=== PATIENT | male | born 1960 | race Caucasian/White ===

== ENCOUNTER 2018-04-09 13:54 | Emergency (ER) | payer OTHER ==
[~2018-04-09] VITALS: Ht 170.2 cm; Wt 88.5 kg
[2018-04-09 14:01] VITALS: BP_SYST 143
--- NOTE | 2018-04-09 14:01 | NUR ---
Patient to ER bed 2 to gown for evaluation. Side rails up.
--- NOTE | 2018-04-09 14:26 | NUR ---
Patient arrived via POV, AAOx4, ambulatory with steady gait. Patient was at work, driving, and at his stop he went to get out of his vehicle and he felt leg weakness, tingling, almost like his feet were 'asleep.' He states he felt like he was walking leaning forward and his balance was affected. States feeling last approximately 1-1.5 hours. Patient denies difficulty hearing, worse than normal. Patient denies increased drainage or irritation with ears. Patient states history: Back injury to lumbar spine years ago, he had a disk bulge. Patient also states, 3-5 years ago he had a TIA. Patient denies N/V/D.
--- NOTE | 2018-04-09 14:27 | NUR ---
ER at bedside examining patient.
--- NOTE | 2018-04-09 14:28 | NUR ---
Lab at bedside for exam, patient tolerated well.
--- NOTE | 2018-04-09 14:33 | NUR ---
XR at bedside for exam.
[2018-04-09 14:41] LABS: BASOPHILS % (AUTO) 0.5 % (0.0-2.0); EOSINOPHILS # (AUTO) 0.2 K/uL (0.0-0.4); EOSINOPHILS % (AUTO) 2.9 % (0.0-4.0); HEMATOCRIT 42.1 % (36-54); LYMPHOCYTES # (AUTO) 0.8 K/uL (1.0-5.5); MEAN CORPUSCULAR HEMOGLOBIN 30 pg (27-31); MEAN CORPUSCULAR HGB CONC 33 % (32-36); MEAN CORPUSCULAR VOLUME 89 fL (79.0-98.0); MONOCYTES # (AUTO) 0.4 K/uL (0.0-1.0); MONOCYTES % (AUTO) 7.9 % (1.7-9.3); NEUTROPHILS # (AUTO) 4.2 K/uL (1.8-7.7); NEUTROPHILS % (AUTO) 73.7 % (40.0-70.0); PLATELET COUNT (AUTO) 354 K/uL (130-430); RED CELL DISTRIBUTION WIDTH 12.4 % (9.0-15.0); WHITE BLOOD COUNT (AUTO) 5.6 K/uL (4.8-10.8)
[2018-04-09 14:48] LABS: ANION GAP 8 (5-15); CHLORIDE 103 mmol/L (98-107); CREATININE 0.75 mg/dL (0.55-1.30); GLUCOSE 120 mg/dL (70-99); POTASSIUM 3.7 mmol/L (3.5-5.1); SODIUM SERUM 137 mmol/L (136-145); UREA NITROGEN, BLOOD 12 mg/dL (8-21)
[2018-04-09 14:52] LABS: GFR AFRICAN AMERICAN 138 mL/min (>90)
[2018-04-09 14:54] LABS: ALANINE AMINOTRANSFERASE 29 U/L (12-78); ALBUMIN 3.8 g/dL (3.4-4.8); ASPARTATE AMINOTRANSFERASE 18 U/L (10-37); TOTAL BILIRUBIN 0.5 mg/dL (0.0-1.0)
[2018-04-09 14:55] LABS: ALCOHOL, BLOOD < 3 mg/dL (<10)
--- NOTE | 2018-04-09 15:22 | NUR ---
Off unit for CT.
--- NOTE | 2018-04-09 15:42 | NUR ---
Patient aware we are waiting for results, patient resting comfortably, given blanket for comfort. Will continue to monitor.
--- NOTE | 2018-04-09 16:03 | NUR ---
Patient given written and verbal discharge instructions and verbalizes understanding. ER MD discussed with patient the results and treatment provided. Patient in stable condition. ID arm band removed. Patient educated on pain management and to follow up with PMD. Pain Scale 0/10. Opportunity for questions provided and answered. Medication side effect fact sheet provided.
[2018-04-09 16:04] VITALS: BP_SYST 128
== END 2018-04-09 16:04 | disposition home or self-care (01) ==
LOC: SED 13:54
DX: R42 Dizziness and giddiness (principal); I10 Essential (primary) hypertension; Z86.73 Personal history of transient ischemic attack (TIA), and cerebral infarction without residual deficits
CPT/HCPCS: 36415; 70450; 71045; 80053; 84484; 85025; 93005; 99285; G0482

== ENCOUNTER 2023-09-27 13:44 | Inpatient (IN) | payer OTHER ==
[~2023-09-27] VITALS: Ht 167.6 cm; Wt 87.1 kg
[2023-09-27 13:45] VITALS: BP_SYST 117; PULSE 111; RESP 18; TEMP 99; O2SAT 98
[2023-09-27 14:40] LABS: BASOPHILS % (AUTO) 0.5 % (0.0-2.0); EOSINOPHILS % (AUTO) 0.2 % (0.0-4.0); HEMATOCRIT 22.1 % (36-54); HEMOGLOBIN 7.7 g/dL (14.0-18.0); LYMPHOCYTES # (AUTO) 1.3 K/uL (1.0-5.5); LYMPHOCYTES % (AUTO) 16.4 % (20.5-51.5); MEAN CORPUSCULAR HEMOGLOBIN 31 pg (27-31); MEAN CORPUSCULAR HGB CONC 35 % (32-36); MEAN CORPUSCULAR VOLUME 89 fL (79.0-98.0); MONOCYTES # (AUTO) 0.6 K/uL (0.0-1.0); MONOCYTES % (AUTO) 7.2 % (1.7-9.3); NEUTROPHILS # (AUTO) 6.2 K/uL (1.8-7.7); NEUTROPHILS % (AUTO) 75.7 % (40.0-70.0); PLATELET COUNT (AUTO) 228 K/uL (130-430); RED BLOOD CELL COUNT(AUTO) 2.48 MIL/uL (4.2-6.2); WHITE BLOOD COUNT (AUTO) 8.2 K/uL (4.8-10.8)
[2023-09-27 14:55] LABS: PROTHROMBIN TIME 10.4 SECS (9.5-12.5)
[2023-09-27 14:56] LABS: ALBUMIN 3.2 g/dL (3.4-4.8); BILIRUBIN,DIRECT 0.1 mg/dL (0.0-0.3); TOTAL BILIRUBIN 0.3 mg/dL (0.0-1.0); TOTAL PROTEIN, SERUM 6.3 g/dL (6.4-8.3)
[2023-09-27 15:05] LABS: ANION GAP 8 (5-15); CALCIUM 7.7 mg/dL (8.4-11.0); CARBON DIOXIDE 26 mmol/L (23-29); CHLORIDE 106 mmol/L (98-107); CREATININE 0.76 mg/dL (0.55-1.30); GFR AFRICAN AMERICAN 133 mL/min (>90); GFR NON AFRICAN-AMERICAN 110 mL/min (>90); GLUCOSE 205 mg/dL (74-106); POTASSIUM 3.9 mmol/L (3.5-5.1); SODIUM SERUM 140 mmol/L (136-145); UREA NITROGEN, BLOOD 30 mg/dL (8-21)
[2023-09-27] MEDS: PANTOPRAZOLE SODIUM 80 MG in NS 100 ML IVP ONE (16:17)
[2023-09-27] MEDS ORDERED: PANTOPRAZOLE SODIUM 40 MG/VIAL (PROTONIX) ONE ×2 (16:17)
[2023-09-27] MEDS ORDERED: LORazepam 2 MG/ML VIAL IVP PRN (17:15)
[2023-09-27] MEDS ORDERED: MAGNESIUM SULFATE 50 ML IV PRN (17:15)
[2023-09-27] MEDS ORDERED: MUPIROCIN 2% TOPICAL OINTMENT 22 GM NS PRN (17:15)
[2023-09-27] MEDS ORDERED: POTASSIUM CHLORIDE 20 MEQ TABLET.ER PO PRN (17:15)
[2023-09-27] MEDS ORDERED: ONDANSETRON HCL 4 MG/2 ML VIAL IVP PRN (17:15)
[2023-09-27] MEDS ORDERED: MORPHINE 2 MG/ML INJ. SYRINGE IVP PRN ×2 (17:15)
[2023-09-27] MEDS ORDERED: ZOLPIDEM TARTRATE 5 MG TABLET PO PRN (17:15)
[2023-09-27] MEDS: D5NS 1,000 ML IV SCH (17:37)
[2023-09-27] MEDS: PANTOPRAZOLE SODIUM 40 MG/VIAL (PROTONIX) IVP ONE (17:38)
[2023-09-27] MEDS ORDERED: ACETAMINOPHEN 500 MG TABLET PO PRN ×3 (17:45)
[2023-09-27] MEDS ORDERED: LIP20 PO (18:09)
[2023-09-27] MEDS ORDERED: METO25TA6 PO (18:09)
[2023-09-27] MEDS ORDERED: ASPI-1393 PO (18:09)
[2023-09-27] MEDS ORDERED: LISI-209 PO (18:09)
[2023-09-27 18:15] LABS: THYROID STIMULATING HORMONE 1.73 uIu/mL (0.36-3.74)
[2023-09-27 21:13] VITALS: BP_SYST 126; PULSE 108; RESP 16; TEMP 97.9
[2023-09-27] MEDS: PANTOPRAZOLE SODIUM 40 MG/VIAL (PROTONIX) IVP SCH (22:29)
[2023-09-28] VITALS (8 sets, daily range): BP systolic 100–130; PULSE 12–108; RESP 16–18; TEMP 97.3–99; O2SAT 94–100
[2023-09-28 08:01] LABS: BASOPHILS % (AUTO) 0.8 % (0.0-2.0); EOSINOPHILS # (AUTO) 0.1 K/uL (0.0-0.4); EOSINOPHILS % (AUTO) 2.6 % (0.0-4.0); HEMATOCRIT 22.4 % (36-54); HEMOGLOBIN 7.7 g/dL (14.0-18.0); LYMPHOCYTES # (AUTO) 1.2 K/uL (1.0-5.5); LYMPHOCYTES % (AUTO) 20.5 % (20.5-51.5); MEAN CORPUSCULAR HEMOGLOBIN 31 pg (27-31); MEAN CORPUSCULAR HGB CONC 34 % (32-36); MEAN CORPUSCULAR VOLUME 89 fL (79.0-98.0); MONOCYTES # (AUTO) 0.6 K/uL (0.0-1.0); MONOCYTES % (AUTO) 10.4 % (1.7-9.3); NEUTROPHILS # (AUTO) 3.8 K/uL (1.8-7.7); NEUTROPHILS % (AUTO) 65.7 % (40.0-70.0); PLATELET COUNT (AUTO) 205 K/uL (130-430); RED BLOOD CELL COUNT(AUTO) 2.51 MIL/uL (4.2-6.2); RED CELL DISTRIBUTION WIDTH 14.2 % (9.0-15.0); WHITE BLOOD COUNT (AUTO) 5.8 K/uL (4.8-10.8)
[2023-09-28 08:11] LABS: CALCIUM 7.8 mg/dL (8.4-11.0); CREATININE 0.74 mg/dL (0.55-1.30); POTASSIUM 4.1 mmol/L (3.5-5.1)
[2023-09-28] MEDS: MIDAZOLAM HCL 5 MG/5 ML VIAL ONE (08:29)
[2023-09-28] MEDS: SIMETHICONE 40 MG/0.6 ML ML ONE (08:29)
[2023-09-28] MEDS: MEPERIDINE 100 MG INJ. 100 MG/ML VIAL ONE (08:29)
[2023-09-28] MEDS: EPINEPHrine JECT 0.1 MG/ML SYR ONE (08:47)
[2023-09-28] MEDS: PANTOPRAZOLE SODIUM 40 MG in NS 50 ML IV SCH (09:47)
[2023-09-28] MEDS ORDERED: DEXTROSE 50% JECT 50 ML DISP.SYRIN IVP PRN (10:00)
[2023-09-28] MEDS: INSULIN LISPRO SLIDING SCALE 100 UNITS/ML, 3 ML VIAL (humaLOG) SUBCUT PRN (12:08)
[2023-09-28] MEDS: ATORVASTATIN 20 MG TABLET PO SCH (21:27)
[2023-09-28] MEDS: METOPROLOL TARTRATE 25 MG TABLET PO SCH (21:28)
[2023-09-29] VITALS (7 sets, daily range): BP systolic 90–127; PULSE 88–104; RESP 16–20; TEMP 97.4–98.3; O2SAT 95–98
[2023-09-29 05:16] LABS: BASOPHILS % (AUTO) 0.5 % (0.0-2.0); EOSINOPHILS # (AUTO) 0.2 K/uL (0.0-0.4); EOSINOPHILS % (AUTO) 3.4 % (0.0-4.0); HEMOGLOBIN 7.5 g/dL (14.0-18.0); LYMPHOCYTES # (AUTO) 1.1 K/uL (1.0-5.5); LYMPHOCYTES % (AUTO) 19.7 % (20.5-51.5); MEAN CORPUSCULAR HEMOGLOBIN 30 pg (27-31); MEAN CORPUSCULAR HGB CONC 35 % (32-36); MEAN CORPUSCULAR VOLUME 88 fL (79.0-98.0); MONOCYTES # (AUTO) 0.5 K/uL (0.0-1.0); MONOCYTES % (AUTO) 8.7 % (1.7-9.3); NEUTROPHILS # (AUTO) 3.9 K/uL (1.8-7.7); NEUTROPHILS % (AUTO) 67.7 % (40.0-70.0); PLATELET COUNT (AUTO) 209 K/uL (130-430); RED BLOOD CELL COUNT(AUTO) 2.49 MIL/uL (4.2-6.2); RED CELL DISTRIBUTION WIDTH 14.4 % (9.0-15.0); WHITE BLOOD COUNT (AUTO) 5.8 K/uL (4.8-10.8)
[2023-09-29 05:45] LABS: CALCIUM 8.1 mg/dL (8.4-11.0); CREATININE 0.84 mg/dL (0.55-1.30); POTASSIUM 4.2 mmol/L (3.5-5.1)
[2023-09-29 06:44] LABS: HEMATOCRIT 21.9 % (36-54)
[2023-09-29] MEDS ORDERED: PRO40 PO (08:08)
[2023-09-29] MEDS: lisinopriL 5 MG TABLET PO SCH (08:23)
[2023-09-29 21:50] LABS: BASOPHILS # (AUTO) 0.1 K/uL (0.0-0.2); BASOPHILS % (AUTO) 1.1 % (0.0-2.0); EOSINOPHILS # (AUTO) 0.2 K/uL (0.0-0.4); EOSINOPHILS % (AUTO) 2.2 % (0.0-4.0); ERYTHROCYTE SEDIMENTATION RATE 2 MM/HR (0-15); HEMATOCRIT 25.1 % (36-54); HEMOGLOBIN 8.6 g/dL (14.0-18.0); LYMPHOCYTES # (AUTO) 1.6 K/uL (1.0-5.5); LYMPHOCYTES % (AUTO) 18.3 % (20.5-51.5); MEAN CORPUSCULAR HEMOGLOBIN 31 pg (27-31); MEAN CORPUSCULAR HGB CONC 34 % (32-36); MEAN CORPUSCULAR VOLUME 89 fL (79.0-98.0); MONOCYTES # (AUTO) 0.8 K/uL (0.0-1.0); NEUTROPHILS % (AUTO) 69.4 % (40.0-70.0); PLATELET COUNT (AUTO) 262 K/uL (130-430); RED BLOOD CELL COUNT(AUTO) 2.81 MIL/uL (4.2-6.2); RED CELL DISTRIBUTION WIDTH 14.2 % (9.0-15.0); WHITE BLOOD COUNT (AUTO) 8.6 K/uL (4.8-10.8)
[2023-09-29 22:01] LABS: HEMOGLOBIN A1C 6.7 % (<5.7)
[2023-09-29 22:06] LABS: INR 0.9 (0.80-1.20); PROTHROMBIN TIME 9.6 SECS (9.5-12.5)
[2023-09-29 22:18] LABS: ALBUMIN 3.1 g/dL (3.4-4.8); CALCIUM 8.2 mg/dL (8.4-11.0); CREATININE 0.91 mg/dL (0.55-1.30); PHENYTOIN (DILANTIN) 0.6 ug/mL (10.0-20.0); POTASSIUM 4.4 mmol/L (3.5-5.1); THYROID STIMULATING HORMONE 1.73 uIu/mL (0.34-4.82); TOTAL BILIRUBIN 0.3 mg/dL (0.0-1.0); TOTAL PROTEIN, SERUM 6.4 g/dL (6.4-8.3)
[2023-09-30] MEDS: DOCUSATE SODIUM 100 MG CAPSULE PO PRN (00:02)
[2023-09-30 06:31] LABS: BASOPHILS % (AUTO) 0.6 % (0.0-2.0); EOSINOPHILS # (AUTO) 0.2 K/uL (0.0-0.4); EOSINOPHILS % (AUTO) 3.2 % (0.0-4.0); HEMATOCRIT 22.9 % (36-54); HEMOGLOBIN 7.7 g/dL (14.0-18.0); LYMPHOCYTES # (AUTO) 1.2 K/uL (1.0-5.5); LYMPHOCYTES % (AUTO) 18.5 % (20.5-51.5); MEAN CORPUSCULAR HEMOGLOBIN 30 pg (27-31); MEAN CORPUSCULAR HGB CONC 34 % (32-36); MEAN CORPUSCULAR VOLUME 90 fL (79.0-98.0); MONOCYTES # (AUTO) 0.7 K/uL (0.0-1.0); MONOCYTES % (AUTO) 10.3 % (1.7-9.3); NEUTROPHILS # (AUTO) 4.5 K/uL (1.8-7.7); NEUTROPHILS % (AUTO) 67.4 % (40.0-70.0); PLATELET COUNT (AUTO) 255 K/uL (130-430); RED BLOOD CELL COUNT(AUTO) 2.55 MIL/uL (4.2-6.2); RED CELL DISTRIBUTION WIDTH 14.1 % (9.0-15.0); WHITE BLOOD COUNT (AUTO) 6.7 K/uL (4.8-10.8)
[2023-09-30 07:06] LABS: ALBUMIN 2.6 g/dL (3.4-4.8); CREATININE 0.81 mg/dL (0.55-1.30); POTASSIUM 3.9 mmol/L (3.5-5.1); TOTAL BILIRUBIN 0.3 mg/dL (0.0-1.0); TOTAL PROTEIN, SERUM 5.5 g/dL (6.4-8.3)
[2023-09-30 07:18] LABS: INR 0.9 (0.80-1.20); PROTHROMBIN TIME 9.8 SECS (9.5-12.5)
[2023-09-30 07:43] LABS: ABG O2 SAT% ESTIMATE 96.5 % (94.0-100.0); BLOOD GAS BASE EXCESS 1.5 mmol/L (-3.0-3.0); BLOOD GAS PCO2 36.3 mmHg (32.0-45.0); BLOOD GAS PH 7.456 (7.350-7.450); BLOOD GAS PO2 80.7 mmHg (75.0-100.0)
[2023-09-30 07:49] LABS: ALLEN'S TEST POSITIVE (P)
[2023-09-30 08:30] VITALS: BP_SYST 115; PULSE 106; RESP 18; TEMP 97.6; O2SAT 99
[2023-09-30 11:10] VITALS: BP_SYST 124; PULSE 97; RESP 18; TEMP 97.6; O2SAT 98
[2023-09-30 11:15] VITALS: BP_SYST 124; PULSE 98; RESP 18; TEMP 97.6; O2SAT 98
== END 2023-09-30 14:25 | disposition home or self-care (01) | DRG 381 ==
LOC: SED 13:44 → STU 17:07
PROVIDERS: ADMIT General Practice; ATTEND General Practice
PROC: 0DB68ZX Excision of Stomach, Via Natural or Artificial Opening Endoscopic, Diagnostic (ICD-10-PCS; principal; 2023-09-28 10:30)
PROC: 0W3P8ZZ Control Bleeding in Gastrointestinal Tract, Via Natural or Artificial Opening Endoscopic (ICD-10-PCS; 2023-09-28 10:30)
DX: K22.11 Ulcer of esophagus with bleeding (principal); D62 Acute posthemorrhagic anemia; K29.71 Gastritis, unspecified, with bleeding; I25.10 Atherosclerotic heart disease of native coronary artery without angina pectoris; I10 Essential (primary) hypertension; E78.5 Hyperlipidemia, unspecified; E11.9 Type 2 diabetes mellitus without complications; Z79.899 Other long term (current) drug therapy; Z86.73 Personal history of transient ischemic attack (TIA), and cerebral infarction without residual deficits
CPT/HCPCS: 36415; 36600; 43239; 43255; 70450; 70490; 71045; 80048; 80053; 80061; 80076; 80185; 82330; 82550; 82803; 82948; 83037; 83690; 83735; 83880; 84443; 84484; 85025; 85379; 85384; 85610; 85651; 85730; 86886; 86900; 86901; 86920; 87081; 88305; 88312; 88313; 93005; 96374; 99291; C9113; G0378; J0171; J2175; J2250; P9021